=== PATIENT | male | born 1950 | race Two or more races ===

== ENCOUNTER → 2016-10-20 | Outpatient (REF) | payer BC, MEDICARE | LOC: M SFHCCAPE 10:51 | PROVIDERS: ATTEND Physician Assistant | DX: I10 Essential (primary) hypertension (principal); E78.5 Hyperlipidemia, unspecified; Z83.3 Family history of diabetes mellitus; Z12.5 Encounter for screening for malignant neoplasm of prostate ==

== ENCOUNTER → 2016-10-22 | Outpatient (REF) | payer BC, MEDICARE ==
[2016-10-22 11:33] LABS: BASO % 0.8 % (0.0-1.0); EOS # 0.3 K/mm3 (0.0-0.50); LARGE UNSTAINED CELL # 0.1 K/mm3 (0.0-0.4); LARGE UNSTAINED CELL % 1.5 % (0.0-4.0); LYMPH # 1.1 K/mm3 (1.5-4.5); LYMPH % 17.6 % (24.0-44.0); MEAN CORPUSCULAR HEMOGLOBIN 33.2 pg (27.0-33.0); MEAN CORPUSCULAR VOLUME 100.7 fl (80.0-96.0); MONO # 0.6 K/mm3 (0.0-0.8); MONO % 9.1 % (0.0-5.0); NEUTROPHILS % 65.9 % (36.0-66.0); PLATELET COUNT, AUTOMATED 197 k/mm3 (150-450); RED CELL DISTRIBUTION WIDTH 13.2 % (11.5-14.5)
[2016-10-22 11:55] LABS: FOLATE 22.1 NG/ML; VITAMIN B12 LEVEL 632 PG/ML
[2016-10-22 12:13] LABS: ALBUMIN/GLOBULIN RATIO 1.11 (1.00-1.93); ALKALINE PHOSPHATASE 67 U/L (45-117); ALT/SGPT 68 U/L (12-78); ANION GAP 7 MEQ/L (8-16); AST/SGOT 44 U/L (15-37); BILIRUBIN,TOTAL 0.4 MG/DL (0.2-1.0); BLOOD UREA NITROGEN 15 MG/DL (7-18); CARBON DIOXIDE LEVEL 27 MEQ/L (21-32); CHLORIDE LEVEL 110 MEQ/L (98-107); CHOLESTEROL LEVEL 161 MG/DL (<200); CREATININE FOR GFR 1.09 MG/DL (0.70-1.30); FREE T4 0.92 NG/DL (0.76-1.46); GLOMERULAR FILTRATION RATE > 60.0 (>49); GLUCOSE, FASTING 106 MG/DL (80-110); MAGNESIUM LEVEL 2.4 MG/DL (1.8-2.4); POTASSIUM SERUM 4.8 MEQ/L (3.5-5.1); SODIUM LEVEL 144 MEQ/L (136-145); TOTAL PROTEIN 7.6 GM/DL (6.4-8.2); TRIGLYCERIDES LEVEL 110 MG/DL (<150)
== END ==
LOC: M SFHCCAPE 07:30 → M SFHCCLAY 07:45
PROVIDERS: ATTEND Physician Assistant
DX: I10 Essential (primary) hypertension (principal); E78.5 Hyperlipidemia, unspecified; F10.10 Alcohol abuse, uncomplicated; Z12.5 Encounter for screening for malignant neoplasm of prostate; Z83.3 Family history of diabetes mellitus; Z79.82 Long term (current) use of aspirin; Z79.899 Other long term (current) drug therapy
CPT/HCPCS: 80053; 80061; 82607; 82746; 83036; 83735; 84439; 84443; 85025; G0103

== ENCOUNTER → 2016-12-30 | Outpatient (REF) | payer BC, MEDICARE | LOC: M LAB REF 17:28 | PROVIDERS: ATTEND Surgery | DX: D48.5 Neoplasm of uncertain behavior of skin (principal) ==

== ENCOUNTER → 2017-01-15 | Outpatient (REF) | payer BC, MEDICARE | LOC: M LAB REF 13:50 | PROVIDERS: ATTEND Surgery | DX: C44.329 Squamous cell carcinoma of skin of other parts of face (principal) ==

== ENCOUNTER → 2017-04-13 | Outpatient (REF) | payer MEDICARE ==
[2017-04-13 19:12] LABS: ALBUMIN/GLOBULIN RATIO 1.14 (1.00-1.93); ALKALINE PHOSPHATASE 68 U/L (45-117); ALT/SGPT 39 U/L (12-78); ANION GAP 8 MEQ/L (8-16); AST/SGOT 29 U/L (7-37); BILIRUBIN,TOTAL 0.3 MG/DL (0.2-1.0); BLOOD UREA NITROGEN 21 MG/DL (7-18); CARBON DIOXIDE LEVEL 25 MEQ/L (21-32); CHLORIDE LEVEL 109 MEQ/L (98-107); CREATININE FOR GFR 1.22 MG/DL (0.70-1.30); GAMMA GLUTAMYLTRANSPEPTIDASE 69 U/L (15-85); GLOMERULAR FILTRATION RATE > 60.0 (>49); GLUCOSE, FASTING 97 MG/DL (70-100); SODIUM LEVEL 142 MEQ/L (136-145); TOTAL PROTEIN 7.5 GM/DL (6.4-8.2)
== END ==
LOC: M SFHCCAPE 07:10
DX: I10 Essential (primary) hypertension (principal); L98.9 Disorder of the skin and subcutaneous tissue, unspecified; E78.5 Hyperlipidemia, unspecified; F10.10 Alcohol abuse, uncomplicated; E66.09 Other obesity due to excess calories; Z68.30 Body mass index [BMI] 30.0-30.9, adult
CPT/HCPCS: 82977

== ENCOUNTER → 2017-11-19 | Outpatient (REF) | payer MEDICARE ==
[2017-11-19 17:17] LABS: BASO # 0.1 10^3/uL (0.0-0.2); BASO % 0.8 % (0.0-1.0); EOS # 0.3 10^3/uL (0.0-0.50); EOS % 4.2 % (0.0-3.0); HEMATOCRIT 40.2 % (42.0-52.0); HEMOGLOBIN 13.5 g/dl (13.5-17.5); IMMATURE GRANULOCYTE % 0.6 % (0-3.0); LYMPH # 1.2 10^3/uL (1.5-4.5); LYMPH % 16.6 % (24.0-44.0); MEAN CORPUSCULAR HEMOGLOBIN 32.5 pg (27.0-33.0); MEAN CORPUSCULAR HGB CONC 33.6 g/dl (32.0-36.5); MEAN CORPUSCULAR VOLUME 96.9 fl (80.0-96.0); MONO # 0.8 10^3/uL (0.0-0.8); MONO % 10.5 % (0.0-5.0); NEUTROPHILS # 4.9 10^3/uL (1.8-7.7); NEUTROPHILS % 67.3 % (36.0-66.0); PLATELET COUNT, AUTOMATED 260 10^3/uL (150-450); RED BLOOD COUNT 4.15 10^6/uL (4.30-6.10); RED CELL DISTRIBUTION WIDTH 13.5 % (11.5-14.5); WHITE BLOOD COUNT 7.2 10^3/uL (4.0-10.0)
[2017-11-19 17:24] LABS: ALBUMIN 3.9 GM/DL (3.2-5.2); ALBUMIN/GLOBULIN RATIO 1.18 (1.00-1.93); ALKALINE PHOSPHATASE 64 U/L (45-117); ALT/SGPT 52 U/L (12-78); ANION GAP 10 MEQ/L (8-16); AST/SGOT 36 U/L (7-37); BILIRUBIN,TOTAL 0.5 MG/DL (0.2-1.0); BLOOD UREA NITROGEN 14 MG/DL (7-18); CALCIUM LEVEL 9.4 MG/DL (8.8-10.2); CARBON DIOXIDE LEVEL 24 MEQ/L (21-32); CHLORIDE LEVEL 108 MEQ/L (98-107); CHOLESTEROL LEVEL 148 MG/DL (<200); GLOMERULAR FILTRATION RATE > 60.0 (>49); GLUCOSE, FASTING 106 MG/DL (70-100); HDL CHOLESTEROL 55 MG/DL (>40); LDL CHOLESTEROL 72 MG/DL (<100); NON-HDL-C 93 MG/DL; POTASSIUM SERUM 4.1 MEQ/L (3.5-5.1); SODIUM LEVEL 142 MEQ/L (136-145); TOTAL PROTEIN 7.2 GM/DL (6.4-8.2); TRIGLYCERIDES LEVEL 106 MG/DL (<150)
[2017-11-19 17:26] LABS: ESTIMATED AVERAGE GLUCOSE 120 MG/DL (60-110); HEMOGLOBIN A1c 5.8 %
== END ==
LOC: M SFHCCAPE 07:08
DX: E78.5 Hyperlipidemia, unspecified (principal); I10 Essential (primary) hypertension; E66.09 Other obesity due to excess calories; Z79.899 Other long term (current) drug therapy
CPT/HCPCS: 84443

== ENCOUNTER → 2018-02-22 | Outpatient (REF) | payer MEDICARE ==
[2018-02-22 17:24] LABS: ALT/SGPT 33 U/L (12-78); BILIRUBIN,TOTAL 0.5 MG/DL (0.2-1.0); BLOOD UREA NITROGEN 19 MG/DL (7-18); CALCIUM LEVEL 9.3 MG/DL (8.8-10.2); CARBON DIOXIDE LEVEL 23 MEQ/L (21-32); CHLORIDE LEVEL 106 MEQ/L (98-107); CHOLESTEROL LEVEL 156 MG/DL (<200); CHOLESTEROL RISK RATIO 2.476 (<5); CREATININE FOR GFR 1.11 MG/DL (0.70-1.30); GLOMERULAR FILTRATION RATE > 60.0 (>49); GLUCOSE, FASTING 95 MG/DL (70-100); HDL CHOLESTEROL 63 MG/DL (>40); LDL CHOLESTEROL 74 MG/DL (<100); NON-HDL-C 93 MG/DL; POTASSIUM SERUM 4.2 MEQ/L (3.5-5.1); SODIUM LEVEL 140 MEQ/L (136-145); TOTAL PROTEIN 7.5 GM/DL (6.4-8.2); TRIGLYCERIDES LEVEL 95 MG/DL (<150)
[2018-02-22 17:28] LABS: BASO # 0.1 10^3/uL (0.0-0.2); BASO % 0.9 % (0.0-1.0); EOS # 0.4 10^3/uL (0.0-0.50); EOS % 5.6 % (0.0-3.0); HEMATOCRIT 41.7 % (42.0-52.0); LYMPH # 1.2 10^3/uL (1.5-4.5); LYMPH % 17.4 % (24.0-44.0); MEAN CORPUSCULAR HEMOGLOBIN 32.3 pg (27.0-33.0); MEAN CORPUSCULAR HGB CONC 33.6 g/dl (32.0-36.5); MEAN CORPUSCULAR VOLUME 96.1 fl (80.0-96.0); MONO # 0.7 10^3/uL (0.0-0.8); MONO % 10.5 % (0.0-5.0); NEUTROPHILS # 4.4 10^3/uL (1.8-7.7); NEUTROPHILS % 65.2 % (36.0-66.0); PLATELET COUNT, AUTOMATED 230 10^3/uL (150-450); RED BLOOD COUNT 4.34 10^6/uL (4.30-6.10); WHITE BLOOD COUNT 6.7 10^3/uL (4.0-10.0)
[2018-02-22 17:41] LABS: HEMOGLOBIN A1c 5.7 %
== END ==
LOC: M SFHCCAPE 07:23
PROVIDERS: ATTEND Physician Assistant
DX: I10 Essential (primary) hypertension (principal); Z12.5 Encounter for screening for malignant neoplasm of prostate; E03.9 Hypothyroidism, unspecified
CPT/HCPCS: 80053; 80061; 83036; 84443; 85025; G0103

== ENCOUNTER → 2018-05-11 | Outpatient (CLI) | payer MEDICARE ==
--- NOTE | 2018-05-11 09:08 | REP ---
Low-dose lung cancer screening CT study of the chest: Without contrast. History: Nicotine dependence. No comparison chest CT. Comparison chest x-ray January 19, 2013. CT findings: No pulmonary mass lesion is seen. There are multiple noncalcified small subcentimeter pulmonary nodules noted bilaterally. The largest of these is a pleural-based nodule in the right upper lobe posteriorly measuring 6 mm in greatest diameter. There is extensive vascular calcification including coronary artery vascular calcification. No other abnormality. Impression: Lung RADS category three examination. The 6 mm nodule right upper lobe posteriorly. 6-month follow-up CT recommended. There are multiple bilateral smaller pulmonary nodules as well. Electronically Signed by Montez Smith MD 05/11/2018 09:15 A
== END ==
LOC: M RAD 07:38
PROVIDERS: ATTEND Physician Assistant
DX: F17.210 Nicotine dependence, cigarettes, uncomplicated (principal); Z12.2 Encounter for screening for malignant neoplasm of respiratory organs

== ENCOUNTER → 2018-06-10 | Outpatient (CLI) | payer MEDICARE ==
--- NOTE | 2018-06-10 13:41 | REP ---
AORTA ULTRASOUND: HISTORY: Abdominal aortic aneurysm. The proximal aorta at the level of the diaphragm is not seen due to bowel gas. The mid abdominal aorta measures 1.9 cm in AP x 2.4 cm in transverse dimensions. The distal abdominal aorta measures 2.6 cm in AP x 3.3 cm in transverse x 7.9 cm in cephalocaudal dimensions. The right common iliac artery measures 1.1 cm in AP x 1.1 cm in transverse dimension. The left common iliac artery measures 1.2 cm in AP x 1.2 cm in transverse dimensions. IMPRESSION: Abdominal aortic aneurysm as described above. Electronically Signed by Montez Echevarria MD 06/10/2018 01:43 P
== END ==
LOC: M RAD 07:59
PROVIDERS: ATTEND Physician Assistant
DX: I71.4 Abdominal aortic aneurysm, without rupture (principal)

== ENCOUNTER → 2018-09-01 | Outpatient (REF) | payer MEDICARE ==
[2018-09-01 17:25] LABS: BASO % 0.7 % (0.0-1.0); EOS # 0.3 10^3/uL (0.0-0.50); EOS % 4.8 % (0.0-3.0); HEMOGLOBIN 13.9 g/dl (13.5-17.5); LYMPH # 1.2 10^3/uL (1.5-4.5); LYMPH % 19.7 % (24.0-44.0); MEAN CORPUSCULAR HEMOGLOBIN 32.8 pg (27.0-33.0); MEAN CORPUSCULAR HGB CONC 33.1 g/dl (32.0-36.5); MEAN CORPUSCULAR VOLUME 99.1 fl (80.0-96.0); MONO # 0.7 10^3/uL (0.0-0.8); MONO % 11.2 % (0.0-5.0); NEUTROPHILS # 3.8 10^3/uL (1.8-7.7); NEUTROPHILS % 63.3 % (36.0-66.0); PLATELET COUNT, AUTOMATED 207 10^3/uL (150-450); RED BLOOD COUNT 4.24 10^6/uL (4.30-6.10)
[2018-09-01 17:40] LABS: ALBUMIN 3.9 GM/DL (3.2-5.2); ALT/SGPT 38 U/L (12-78); BILIRUBIN,TOTAL 0.4 MG/DL (0.2-1.0); BLOOD UREA NITROGEN 15 MG/DL (7-18); CALCIUM LEVEL 9.1 MG/DL (8.8-10.2); CARBON DIOXIDE LEVEL 25 MEQ/L (21-32); CHLORIDE LEVEL 107 MEQ/L (98-107); CHOLESTEROL LEVEL 148 MG/DL (<200); CHOLESTEROL RISK RATIO 2.242 (<5); FREE T4 0.92 NG/DL (0.76-1.46); GLOMERULAR FILTRATION RATE > 60.0 (>49); GLUCOSE, FASTING 98 MG/DL (70-100); HDL CHOLESTEROL 66 MG/DL (>40); LDL CHOLESTEROL 64 MG/DL (<100); NON-HDL-C 82 MG/DL; POTASSIUM SERUM 4.3 MEQ/L (3.5-5.1); SODIUM LEVEL 140 MEQ/L (136-145); TOTAL PROTEIN 7.6 GM/DL (6.4-8.2); TRIGLYCERIDES LEVEL 92 MG/DL (<150)
[2018-09-01 17:41] LABS: VITAMIN B12 LEVEL 298 PG/ML
[2018-09-01 18:12] LABS: HEMOGLOBIN A1c 5.7 %
== END ==
LOC: M SFHCCAPE 07:04
PROVIDERS: ATTEND Physician Assistant
DX: I10 Essential (primary) hypertension (principal); E03.9 Hypothyroidism, unspecified; R73.09 Other abnormal glucose; E78.5 Hyperlipidemia, unspecified; F10.10 Alcohol abuse, uncomplicated

== ENCOUNTER → 2018-12-29 | Outpatient (CLI) | payer MEDICARE ==
--- NOTE | 2018-12-29 10:36 | REP ---
CT CHEST WITHOUT CONTRAST: HISTORY: Lung nodule followup. Comparison chest CT study May 11, 2018. CT FINDINGS: Prominent vascular calcification is again noted. No adrenal lesion is seen. No pleural or pericardial effusion is observed. No hilar or mediastinal mass or adenopathy is observed. Today's exam is obtained at a rowe level of inspiration. There is a stable 3 mm pulmonary nodule in the left lower lobe on today's study page 79 of 113 series 201. On page 59, there is a stable 5 mm right middle lobe pulmonary nodule. On page 30, there is a stable pleural based nodule in the right upper lobe posteriorly. No new nodule is seen. No other pulmonary nodule is visible. No pulmonary mass or infiltrate is seen. Exam is otherwise unremarkable. IMPRESSION: Three subcentimeter nodular opacities all unchanged from the May 11, 2018 prior study. Repeat study and 6-9 months suggested. Electronically Signed by Montez Smith MD 12/29/2018 03:24 P
== END ==
LOC: M RAD 07:55
PROVIDERS: ATTEND Physician Assistant
DX: R91.8 Other nonspecific abnormal finding of lung field (principal)

== ENCOUNTER → 2019-12-06 | Outpatient (REF) | payer MEDICARE ==
[2019-12-06 12:13] LABS: BASO % 0.6 % (0.0-1.0); EOS # 0.5 10^3/uL (0.0-0.5); EOS % 7.3 % (0.0-3.0); HEMATOCRIT 40.7 % (42.0-52.0); HEMOGLOBIN 13.3 g/dl (13.5-17.5); LYMPH # 1.3 10^3/uL (1.5-5.0); LYMPH % 18.7 % (24.0-44.0); MEAN CORPUSCULAR HEMOGLOBIN 32.6 pg (27.0-33.0); MEAN CORPUSCULAR HGB CONC 32.7 g/dl (32.0-36.5); MEAN CORPUSCULAR VOLUME 99.8 fl (80.0-96.0); MONO # 0.6 10^3/uL (0.0-0.8); MONO % 9.3 % (0.0-5.0); NEUTROPHILS # 4.4 10^3/uL (1.5-8.5); PLATELET COUNT, AUTOMATED 236 10^3/uL (150-450); RED BLOOD COUNT 4.08 10^6/uL (4.30-6.10); WHITE BLOOD COUNT 6.9 10^3/uL (4.0-10.0)
[2019-12-06 12:29] LABS: ALBUMIN 3.8 GM/DL (3.2-5.2); ALT/SGPT 32 U/L (12-78); BILIRUBIN,TOTAL 0.4 MG/DL (0.2-1.0); BLOOD UREA NITROGEN 18 MG/DL (7-18); CALCIUM LEVEL 9.2 MG/DL (8.8-10.2); CARBON DIOXIDE LEVEL 28 MEQ/L (21-32); CHLORIDE LEVEL 106 MEQ/L (98-107); CHOLESTEROL LEVEL 163 MG/DL (<200); CHOLESTEROL RISK RATIO 2.672 (<5); CREATININE FOR GFR 1.24 MG/DL (0.70-1.30); FREE T4 0.83 NG/DL (0.76-1.46); GLOMERULAR FILTRATION RATE > 60.0 (>42); GLUCOSE, FASTING 111 MG/DL (70-100); HDL CHOLESTEROL 61 MG/DL (>40); LDL CHOLESTEROL 84 MG/DL (<100); NON-HDL-C 102 MG/DL; POTASSIUM SERUM 4.7 MEQ/L (3.5-5.1); SODIUM LEVEL 138 MEQ/L (136-145); TOTAL PROTEIN 7.4 GM/DL (6.4-8.2); TRIGLYCERIDES LEVEL 91 MG/DL (<150)
[2019-12-06 12:33] LABS: HEMOGLOBIN A1c 5.3 %
== END ==
LOC: M SFHCCLAY 09:11
PROVIDERS: ATTEND Physician Assistant
DX: I10 Essential (primary) hypertension (principal); E03.9 Hypothyroidism, unspecified; R73.09 Other abnormal glucose; E78.5 Hyperlipidemia, unspecified; I25.10 Atherosclerotic heart disease of native coronary artery without angina pectoris; Z12.5 Encounter for screening for malignant neoplasm of prostate
CPT/HCPCS: 80053; 80061; 83036; 84439; 84443; 85025; G0103

== ENCOUNTER → 2020-03-13 | Outpatient (CLI) | payer MEDICARE ==
--- NOTE | 2020-03-13 11:54 | REP ---
INDICATION: LUNG NODULE. COMPARISON: Comparison chest CT studies are from 29 December 2018 and 11 May 2018.. TECHNIQUE: Helical scanning is acquired. 3 mm axial images are generated. Coronal and sagittal MPR and coronal MIP images are generated. FINDINGS: Preliminary digital varnish blender radiographs are unremarkable. There is no evidence of pleural or pericardial effusion. Normal adrenals are seen. No abnormality is noted in the abdomen. Vascular calcification is observed. No hilar or mediastinal mass or adenopathy is seen. The previously noted subcentimeter nodules in the left lower lobe,2 right middle lobe, and right upper lobe posteriorly, are again seen and are all unchanged from the May 11, 2018 prior study. There is a new patchy infiltrate pattern in the right upper lobe with ground-glass opacities in a peribronchovascular distribution which suggests inflammatory disease/pneumonia. Possibly viral pneumonia. In addition, there is a new pulmonary nodule in the right lower lobe projecting on page 56 of 118 in series 201 of today's study. This measures 6 mm in diameter. No other new nodule is seen. Scan is otherwise unremarkable. IMPRESSION: 1. There is a new infiltrate in the right upper lobe with ground-glass opacity in a peribronchovascular distribution. Question pneumonia possibly viral pneumonia. 2. There is a new 6 mm nodule in the right lower lobe without calcification. Other previously observed nodules are stable. 3. Recommendation: 6 month follow-up chest CT study. <Electronically signed by Gonzalo Smith > 03/13/20 [id number]
== END ==
LOC: M RAD 07:51
PROVIDERS: ATTEND Physician Assistant
DX: R91.1 Solitary pulmonary nodule (principal)

== ENCOUNTER → 2020-06-12 | Outpatient (REF) | payer MEDICARE ==
[2020-06-12 13:45] LABS: BASO % 0.6 % (0.0-1.0); EOS # 0.4 10^3/uL (0.0-0.5); EOS % 6.1 % (0.0-3.0); HEMATOCRIT 40.7 % (42.0-52.0); HEMOGLOBIN 13.2 g/dl (13.5-17.5); LYMPH # 1.2 10^3/uL (1.5-5.0); LYMPH % 17.9 % (24.0-44.0); MEAN CORPUSCULAR HGB CONC 32.4 g/dl (32.0-36.5); MEAN CORPUSCULAR VOLUME 98.8 fl (80.0-96.0); MONO # 0.8 10^3/uL (0.0-0.8); MONO % 11.9 % (2.0-8.0); NEUTROPHILS # 4.3 10^3/uL (1.5-8.5); NEUTROPHILS % 63.1 % (36.0-66.0); PLATELET COUNT, AUTOMATED 221 10^3/uL (150-450); RED BLOOD COUNT 4.12 10^6/uL (4.30-6.10); WHITE BLOOD COUNT 6.8 10^3/uL (4.0-10.0)
[2020-06-12 14:24] LABS: ALBUMIN 3.8 GM/DL (3.2-5.2); ALT/SGPT 33 U/L (12-78); BILIRUBIN,TOTAL 0.4 MG/DL (0.2-1.0); BLOOD UREA NITROGEN 14 MG/DL (7-18); CALCIUM LEVEL 9.2 MG/DL (8.8-10.2); CARBON DIOXIDE LEVEL 29 MEQ/L (21-32); CHLORIDE LEVEL 106 MEQ/L (98-107); CREATININE FOR GFR 0.95 MG/DL (0.70-1.30); FERRITIN 210 NG/ML (26-388); FREE T4 0.96 NG/DL (0.76-1.46); GLOMERULAR FILTRATION RATE > 60.0 (>42); GLUCOSE, FASTING 109 MG/DL (70-100); HEMOGLOBIN A1c 5.3 %; IRON (FE) 84 UG/DL (65-175); POTASSIUM SERUM 4.6 MEQ/L (3.5-5.1); SODIUM LEVEL 139 MEQ/L (136-145); TOTAL PROTEIN 7.1 GM/DL (6.4-8.2)
[2020-06-12 14:25] LABS: FOLATE 13.8 NG/ML; VITAMIN B12 LEVEL 256 PG/ML
== END ==
LOC: M SFHCCLAY 08:17
PROVIDERS: ATTEND Physician Assistant
DX: D64.9 Anemia, unspecified (principal); E03.9 Hypothyroidism, unspecified; R73.09 Other abnormal glucose

== ENCOUNTER → 2020-09-20 | Outpatient (CLI) | payer MEDICARE ==
--- NOTE | 2020-09-20 14:48 | REP ---
INDICATION: ABN FINDING OF LUNG FIELD. COMPARISON: 03/13/2020. TECHNIQUE: Chest CT without IV contrast. FINDINGS: The right upper lobe ground-glass densities identified as new findings on the comparison study have resolved, likely transient atelectasis or transient infiltrates. The 6 mm right lower lobe lung nodule identified as a new finding on 03/13/2020 is no longer present, likely transient atelectasis. There are stable lung nodules on: Page 32 posteriorly right upper lobe, Page 63 right middle lobe, And page 75 left lower lobe, unchanged from the prior study and also unchanged from May 11 2018. No new lung nodules are identified today. There are no infiltrates or pleural effusions. There is no mediastinal or axillary lymph node enlargement. The study is insensitive for hilar lymph node enlargement in the absence of IV contrast. The unenhanced thoracic aorta is unremarkable except for occasional calcified atheroma. Cardiac size is normal. There is calcified atheroma in the coronary arteries, particularly left anterior descending. There is no pericardial effusion. The visualized upper abdominal contents 10 demonstrate no adrenal mass. There is heavily calcified atheromatous plaquing at the origin of the superior mesenteric artery. There is calcified atheroma at the origins of the renal arteries. Question whether there is a endovascular stent at the origin of the right renal artery IMPRESSION: Lung nodules as described. Some of the nodules on the comparison study have resolved. There are no new nodules. There is some chronic stable nodules as described. There are no infiltrates or pleural effusions. There is no adenopathy. Calcified atheroma in the left anterior descending coronary artery. Calcified atheroma at the origin of the superior mesenteric artery. Calcified atheroma at the origins of the renal arteries. Question endovascular stent at the origin of the right renal artery. This should be correlated with the patient's clinical history. <Electronically signed by Marcus Álvarez > 09/20/20 [id number]
== END ==
LOC: M PLAIMG 12:41
PROVIDERS: ATTEND Physician Assistant
DX: R91.8 Other nonspecific abnormal finding of lung field (principal); I25.10 Atherosclerotic heart disease of native coronary artery without angina pectoris

== ENCOUNTER → 2020-10-08 | Outpatient (REF) | payer MEDICARE ==
[2020-10-08 18:15] LABS: FREE T4 0.83 NG/DL (0.76-1.46); THYROID STIMULATING HORMONE 3.33 uIU/ML (0.358-3.740)
== END ==
LOC: M SFHCCAPE 07:49
PROVIDERS: ATTEND Physician Assistant
DX: E03.9 Hypothyroidism, unspecified (principal)

== ENCOUNTER → 2020-10-11 | Outpatient (REF) | payer MEDICARE ==
[2020-10-11 16:35] LABS: BASO # 0.1 10^3/uL (0.0-0.2); EOS # 0.4 10^3/uL (0.0-0.5); EOS % 5.5 % (0.0-3.0); HEMATOCRIT 44.6 % (42.0-52.0); HEMOGLOBIN 14.9 g/dl (13.5-17.5); LYMPH # 1.1 10^3/uL (1.5-5.0); LYMPH % 15.7 % (24.0-44.0); MEAN CORPUSCULAR HEMOGLOBIN 32.3 pg (27.0-33.0); MEAN CORPUSCULAR HGB CONC 33.4 g/dl (32.0-36.5); MEAN CORPUSCULAR VOLUME 96.7 fl (80.0-96.0); MONO # 0.8 10^3/uL (0.0-0.8); MONO % 11.4 % (2.0-8.0); NEUTROPHILS # 4.8 10^3/uL (1.5-8.5); PLATELET COUNT, AUTOMATED 255 10^3/uL (150-450); RED BLOOD COUNT 4.61 10^6/uL (4.30-6.10); WHITE BLOOD COUNT 7.3 10^3/uL (4.0-10.0)
[2020-10-11 17:00] LABS: ALBUMIN 4.1 GM/DL (3.2-5.2); ALT/SGPT 40 U/L (12-78); BILIRUBIN,TOTAL 0.6 MG/DL (0.2-1.0); BLOOD UREA NITROGEN 11 MG/DL (7-18); CALCIUM LEVEL 9.6 MG/DL (8.8-10.2); CARBON DIOXIDE LEVEL 22 MEQ/L (21-32); CHLORIDE LEVEL 105 MEQ/L (98-107); CREATININE FOR GFR 1.03 MG/DL (0.70-1.30); GLOMERULAR FILTRATION RATE > 60.0 (>42); GLUCOSE, FASTING 101 MG/DL (70-100); MAGNESIUM LEVEL 2.5 MG/DL (1.8-2.4); NT-PRO BNP 342 PG/ML (<125); POTASSIUM SERUM 4.8 MEQ/L (3.5-5.1); SODIUM LEVEL 136 MEQ/L (136-145); TOTAL PROTEIN 8.2 GM/DL (6.4-8.2)
[2020-10-11 17:04] LABS: APPEARANCE, URINE CLEAR (CLEAR); BACTERIA, URINE AUTO NEGATIVE (NEGATIVE); BILIRUBIN, URINE AUTO NEGATIVE (NEGATIVE); BLOOD, URINE BLOOD NEGATIVE (NEGATIVE); COLOR, URINE YELLOW (YELLOW); GLUCOSE, URINE (UA) AUTO NEGATIVE (NEGATIVE); KETONE, URINE AUTO NEGATIVE (NEGATIVE); LEUKOCYTE ESTERASE, URINE AUTO NEGATIVE (NEGATIVE); MUCUS, URINE SMALL (NEGATIVE); NITRITE, URINE AUTO NEGATIVE (NEGATIVE); PROTEIN, URINE AUTO NEGATIVE (NEGATIVE); RBC, URINE AUTO 1 /HPF (0-3); SPECIFIC GRAVITY URINE AUTO 1.005 (1.002-1.035); SQUAMOUS EPITHELIAL CELL UR AU 0 /HPF (0-6); UROBILINOGEN, URINE AUTO 0.2 mg/dL (0.0-2.0); WBC, URINE AUTO 0 /HPF (0-3)
== END ==
LOC: M SFHCCAPE 08:45
PROVIDERS: ATTEND Physician Assistant
DX: R60.0 Localized edema (principal)

== ENCOUNTER → 2021-01-14 | Outpatient (REF) | payer MEDICARE ==
[2021-01-14 16:41] LABS: BASO # 0.1 10^3/uL (0.0-0.2); EOS # 0.4 10^3/uL (0.0-0.5); EOS % 6.6 % (0.0-3.0); HEMATOCRIT 42.2 % (42.0-52.0); LYMPH # 1.2 10^3/uL (1.5-5.0); LYMPH % 19.4 % (24.0-44.0); MEAN CORPUSCULAR HEMOGLOBIN 32.9 pg (27.0-33.0); MEAN CORPUSCULAR HGB CONC 33.2 g/dl (32.0-36.5); MEAN CORPUSCULAR VOLUME 99.1 fl (80.0-96.0); MONO # 0.8 10^3/uL (0.0-0.8); NEUTROPHILS # 3.8 10^3/uL (1.5-8.5); NEUTROPHILS % 60.8 % (36.0-66.0); PLATELET COUNT, AUTOMATED 213 10^3/uL (150-450); RED BLOOD COUNT 4.26 10^6/uL (4.30-6.10); WHITE BLOOD COUNT 6.2 10^3/uL (4.0-10.0)
[2021-01-14 17:39] LABS: ALT/SGPT 35 U/L (12-78); BILIRUBIN,TOTAL 0.4 MG/DL (0.2-1.0); BLOOD UREA NITROGEN 19 MG/DL (7-18); CALCIUM LEVEL 9.4 MG/DL (8.8-10.2); CARBON DIOXIDE LEVEL 25 MEQ/L (21-32); CHLORIDE LEVEL 105 MEQ/L (98-107); CHOLESTEROL LEVEL 158 MG/DL (<200); CHOLESTEROL RISK RATIO 2.323 (<5); CREATININE FOR GFR 1.11 MG/DL (0.70-1.30); GLOMERULAR FILTRATION RATE > 60.0 (>42); GLUCOSE, FASTING 101 MG/DL (70-100); HDL CHOLESTEROL 68 MG/DL (>40); LDL CHOLESTEROL 70 MG/DL (<100); NON-HDL-C 90 MG/DL; POTASSIUM SERUM 4.4 MEQ/L (3.5-5.1); SODIUM LEVEL 137 MEQ/L (136-145); TOTAL PROTEIN 7.9 GM/DL (6.4-8.2); TRIGLYCERIDES LEVEL 99 MG/DL (<150)
== END ==
LOC: M SFHCCAPE 07:44
PROVIDERS: ATTEND Physician Assistant
DX: E03.9 Hypothyroidism, unspecified (principal); Z12.5 Encounter for screening for malignant neoplasm of prostate
CPT/HCPCS: 80053; 80061; 84443; 85025; G0103

== ENCOUNTER → 2021-02-25 | Outpatient (REF) | payer MEDICARE ==
[2021-02-25 16:05] LABS: BLOOD UREA NITROGEN 21 MG/DL (7-18); CALCIUM LEVEL 9.1 MG/DL (8.8-10.2); CARBON DIOXIDE LEVEL 28 MEQ/L (21-32); CHLORIDE LEVEL 105 MEQ/L (98-107); CREATININE FOR GFR 1.25 MG/DL (0.70-1.30); FREE T4 1.17 NG/DL (0.76-1.46); GLOMERULAR FILTRATION RATE > 60.0 (>42); GLUCOSE, FASTING 95 MG/DL (70-100); POTASSIUM SERUM 3.9 MEQ/L (3.5-5.1); SODIUM LEVEL 139 MEQ/L (136-145)
== END ==
LOC: M SFHCCAPE 08:12
PROVIDERS: ATTEND Physician Assistant
DX: E03.9 Hypothyroidism, unspecified (principal); I10 Essential (primary) hypertension

== ENCOUNTER → 2021-10-21 | Outpatient (CLI) | payer MEDICARE | LOC: M RAD 09:02 | PROVIDERS: ATTEND Physician Assistant | DX: Z12.2 Encounter for screening for malignant neoplasm of respiratory organs (principal); Z87.891 Personal history of nicotine dependence ==

== ENCOUNTER → 2022-03-26 | Outpatient (CLI) | payer MEDICARE | LOC: M RAD 07:57 | PROVIDERS: ATTEND Physician Assistant | DX: I71.43 Infrarenal abdominal aortic aneurysm, without rupture (principal); I72.3 Aneurysm of iliac artery ==

== ENCOUNTER → 2022-05-23 | Outpatient (CLI) | payer MEDICARE | LOC: M CLY 08:53 | PROVIDERS: ATTEND Physician Assistant | DX: M51.37 Other intervertebral disc degeneration, lumbosacral region (principal) ==

== ENCOUNTER → 2022-06-12 | Outpatient (REF) | payer MEDICARE ==
[2022-06-12 17:49] LABS: ALBUMIN 4.2 G/DL (3.2-5.2); BILIRUBIN,TOTAL 0.4 MG/DL (0.3-1.2); CALCIUM LEVEL 9.3 MG/DL (8.3-10.6); CHOLESTEROL RISK RATIO 3.41 (<5); CREATININE FOR GFR 1.26 MG/DL (0.70-1.30); GLOMERULAR FILTRATION RATE 59.7 (>42); HDL CHOLESTEROL 42.2 MG/DL (>40); LDL CHOLESTEROL 79.8 MG/DL (<100); MAGNESIUM LEVEL 1.8 MG/DL (1.8-2.4); NON-HDL-C 101.8 MG/DL; POTASSIUM SERUM 4.3 MMOL/L (3.5-5.1); TOTAL PROTEIN 7.4 G/DL (5.7-8.2)
[2022-06-12 17:51] LABS: FREE T4 1.16 NG/DL (0.89-1.76)
[2022-06-12 17:52] LABS: THYROID STIMULATING HORMONE 3.123 uIU/ML (0.55-4.78); TOTAL 25(OH) VITAMIN D 33.1 NG/ML (20.0-100.0)
[2022-06-12 18:01] LABS: APPEARANCE, URINE CLEAR (CLEAR); BACTERIA, URINE AUTO NEGATIVE (NEGATIVE); BILIRUBIN, URINE AUTO NEGATIVE (NEGATIVE); BLOOD, URINE BLOOD 1+ (NEGATIVE); COLOR, URINE YELLOW (YELLOW); GLUCOSE, URINE (UA) AUTO NEGATIVE (NEGATIVE); KETONE, URINE AUTO NEGATIVE (NEGATIVE); LEUKOCYTE ESTERASE, URINE AUTO NEGATIVE (NEGATIVE); MUCUS, URINE SMALL (NEGATIVE); NITRITE, URINE AUTO NEGATIVE (NEGATIVE); PROTEIN, URINE AUTO NEGATIVE (NEGATIVE); RBC, URINE AUTO 1 /HPF (0-3); SPECIFIC GRAVITY URINE AUTO 1.014 (1.002-1.035); SQUAMOUS EPITHELIAL CELL UR AU 0 /HPF (0-6); UROBILINOGEN, URINE AUTO 0.2 mg/dL (0.0-2.0); WBC, URINE AUTO 0 /HPF (0-3)
[2022-06-12 18:04] LABS: BASO # 0.1 10^3/uL (0.0-0.2); BASO % 0.9 % (0.0-1.0); EOS # 0.6 10^3/uL (0.0-0.5); EOS % 8.3 % (0.0-3.0); HEMATOCRIT 38.7 % (42.0-52.0); HEMOGLOBIN 13.1 g/dl (13.5-17.5); LYMPH # 1.4 10^3/uL (1.5-5.0); LYMPH % 21.1 % (24.0-44.0); MEAN CORPUSCULAR HEMOGLOBIN 32.7 pg (27.0-33.0); MEAN CORPUSCULAR HGB CONC 33.9 g/dl (32.0-36.5); MEAN CORPUSCULAR VOLUME 96.5 fl (80.0-96.0); MONO # 0.8 10^3/uL (0.0-0.8); MONO % 11.6 % (2.0-8.0); NEUTROPHILS # 3.8 10^3/uL (1.5-8.5); NEUTROPHILS % 57.8 % (36.0-66.0); PLATELET COUNT, AUTOMATED 219 10^3/uL (150-450); RED BLOOD COUNT 4.01 10^6/uL (4.30-6.10); WHITE BLOOD COUNT 6.6 10^3/uL (4.0-10.0)
[2022-06-12 19:41] LABS: HEMOGLOBIN A1c 5.5 % (4.0-6.0)
== END ==
LOC: M SFHCCAPE 08:12
PROVIDERS: ATTEND Physician Assistant
DX: Z00.00 Encounter for general adult medical examination without abnormal findings (principal); Z79.899 Other long term (current) drug therapy

== ENCOUNTER → 2022-10-15 | Outpatient (REF) | payer MEDICARE ==
[2022-10-15 18:12] LABS: BASO # 0.1 10^3/uL (0.0-0.2); BASO % 0.9 % (0.0-1.0); EOS # 0.4 10^3/uL (0.0-0.5); EOS % 5.5 % (0.0-3.0); HEMATOCRIT 39.2 % (42.0-52.0); HEMOGLOBIN 13.6 g/dl (13.5-17.5); LYMPH # 1.3 10^3/uL (1.5-5.0); MEAN CORPUSCULAR HEMOGLOBIN 32.9 pg (27.0-33.0); MEAN CORPUSCULAR HGB CONC 34.7 g/dl (32.0-36.5); MEAN CORPUSCULAR VOLUME 94.9 fl (80.0-96.0); MONO % 14.1 % (2.0-8.0); NEUTROPHILS # 4.5 10^3/uL (1.5-8.5); NEUTROPHILS % 61.2 % (36.0-66.0); PLATELET COUNT, AUTOMATED 233 10^3/uL (150-450); RED BLOOD COUNT 4.13 10^6/uL (4.30-6.10); WHITE BLOOD COUNT 7.4 10^3/uL (4.0-10.0)
[2022-10-15 18:13] LABS: APPEARANCE, URINE CLEAR (CLEAR); BACTERIA, URINE AUTO NEGATIVE (NEGATIVE); BILIRUBIN, URINE AUTO NEGATIVE (NEGATIVE); BLOOD, URINE BLOOD 1+ (NEGATIVE); COLOR, URINE STRAW (YELLOW); GLUCOSE, URINE (UA) AUTO NEGATIVE (NEGATIVE); KETONE, URINE AUTO NEGATIVE (NEGATIVE); LEUKOCYTE ESTERASE, URINE AUTO NEGATIVE (NEGATIVE); NITRITE, URINE AUTO NEGATIVE (NEGATIVE); PROTEIN, URINE AUTO NEGATIVE (NEGATIVE); RBC, URINE AUTO 1 /HPF (0-3); SPECIFIC GRAVITY URINE AUTO 1.008 (1.002-1.035); SQUAMOUS EPITHELIAL CELL UR AU 0 /HPF (0-6); UROBILINOGEN, URINE AUTO 0.2 mg/dL (0.0-2.0); WBC, URINE AUTO 0 /HPF (0-3)
[2022-10-15 18:43] LABS: IRON (FE) 66 UG/DL (65-175); PERCENT SATURATION 20.6 % (19.7-50.0); TOTAL IRON BINDING CAPACITY 320 UG/DL (250-425)
[2022-10-15 18:44] LABS: ALKALINE PHOSPHATASE 62 U/L (46-116); ALT/SGPT 33 U/L (7.0-40); AST/SGOT 33 U/L (<34); BILIRUBIN,TOTAL 0.5 MG/DL (0.3-1.2); BLOOD UREA NITROGEN 13 MG/DL (9-23); CALCIUM LEVEL 9.3 MG/DL (8.3-10.6); CARBON DIOXIDE LEVEL 25 MMOL/L (20-31); CHLORIDE LEVEL 99 MMOL/L (98-107); CREATININE FOR GFR 0.94 MG/DL (0.70-1.30); FERRITIN 200.6 NG/ML (10.5-307.3); GLOMERULAR FILTRATION RATE > 60.0 (>42); GLUCOSE, FASTING 104 MG/DL (74-106); POTASSIUM SERUM 4.2 MMOL/L (3.5-5.1); SODIUM LEVEL 132 MMOL/L (136-145); TOTAL PROTEIN 7.2 G/DL (5.7-8.2)
== END ==
LOC: M SFHCCAPE 08:19
PROVIDERS: ATTEND Physician Assistant Medical
DX: D64.9 Anemia, unspecified (principal); Z79.899 Other long term (current) drug therapy

== ENCOUNTER → 2022-12-31 | Outpatient (CLI) | payer MEDICARE | LOC: M RAD 08:44 | PROVIDERS: ATTEND Physician Assistant | DX: Z12.2 Encounter for screening for malignant neoplasm of respiratory organs (principal); Z87.891 Personal history of nicotine dependence ==

== ENCOUNTER → 2023-03-05 | Outpatient (REF) | payer MEDICARE ==
[2023-03-05 18:14] LABS: BLOOD UREA NITROGEN 21 MG/DL (9-23); CALCIUM LEVEL 9.6 MG/DL (8.3-10.6); CARBON DIOXIDE LEVEL 27 MMOL/L (20-31); CHLORIDE LEVEL 103 MMOL/L (98-107); GLOMERULAR FILTRATION RATE > 60.0 (>42); GLUCOSE, FASTING 87 MG/DL (74-106); POTASSIUM SERUM 4.6 MMOL/L (3.5-5.1); SODIUM LEVEL 136 MMOL/L (136-145)
== END ==
LOC: M SFHCCAPE 11:25
PROVIDERS: ATTEND Physician Assistant Medical
DX: E87.1 Hypo-osmolality and hyponatremia (principal)

== ENCOUNTER → 2023-03-13 | Outpatient (CLI) | payer MEDICARE | LOC: M WHC 12:59 | PROVIDERS: ATTEND Physician Assistant Medical | DX: M43.9 Deforming dorsopathy, unspecified (principal) ==

== ENCOUNTER → 2023-03-18 | Outpatient (CLI) | payer MEDICARE | LOC: M RAD 09:28 | PROVIDERS: ATTEND Physician Assistant | DX: I71.40 Abdominal aortic aneurysm, without rupture, unspecified (principal) ==

== ENCOUNTER → 2023-06-29 | Outpatient (REF) | payer MEDICARE ==
[2023-06-29 17:53] LABS: PSA SCREENING 0.62 NG/ML (< 4.00)
[2023-06-29 17:54] LABS: ALBUMIN 3.8 G/DL (3.2-5.2); ALKALINE PHOSPHATASE 62 U/L (46-116); ALT/SGPT 26 U/L (7.0-40); AST/SGOT 25 U/L (<34); BASO # 0.1 10^3/uL (0.0-0.2); BILIRUBIN,TOTAL 0.6 MG/DL (0.3-1.2); BLOOD UREA NITROGEN 22 MG/DL (9-23); CARBON DIOXIDE LEVEL 23 MMOL/L (20-31); CHLORIDE LEVEL 104 MMOL/L (98-107); CHOLESTEROL LEVEL 146 MG/DL (<200); CHOLESTEROL RISK RATIO 2.53 (<5); CREATININE FOR GFR 0.98 MG/DL (0.70-1.30); EOS # 0.4 10^3/uL (0.0-0.5); EOS % 6.3 % (0.0-3.0); GLOMERULAR FILTRATION RATE > 60.0 (>42); GLUCOSE, FASTING 107 MG/DL (74-106); HDL CHOLESTEROL 57.7 MG/DL (>40); HEMATOCRIT 36.9 % (42.0-52.0); HEMOGLOBIN 12.7 g/dl (13.5-17.5); LDL CHOLESTEROL 72.5 MG/DL (<100); LYMPH # 1.1 10^3/uL (1.5-5.0); LYMPH % 18.6 % (24.0-44.0); MEAN CORPUSCULAR HEMOGLOBIN 33.2 pg (27.0-33.0); MEAN CORPUSCULAR HGB CONC 34.4 g/dl (32.0-36.5); MEAN CORPUSCULAR VOLUME 96.3 fl (80.0-96.0); MONO # 0.9 10^3/uL (0.0-0.8); NEUTROPHILS # 3.6 10^3/uL (1.5-8.5); NEUTROPHILS % 59.8 % (36.0-66.0); NON-HDL-C 88.3 MG/DL; PLATELET COUNT, AUTOMATED 229 10^3/uL (150-450); POTASSIUM SERUM 4.2 MMOL/L (3.5-5.1); RED BLOOD COUNT 3.83 10^6/uL (4.30-6.10); SODIUM LEVEL 135 MMOL/L (136-145); TRIGLYCERIDES LEVEL 79 MG/DL (<150); WHITE BLOOD COUNT 6.1 10^3/uL (4.0-10.0)
[2023-06-29 17:57] LABS: THYROID STIMULATING HORMONE 2.777 uIU/ML (0.55-4.78)
[2023-06-29 17:58] LABS: FREE T4 1.16 NG/DL (0.89-1.76)
== END ==
LOC: M SFHCCAPE 08:47
PROVIDERS: ATTEND Physician Assistant Medical
DX: I25.10 Atherosclerotic heart disease of native coronary artery without angina pectoris (principal); I10 Essential (primary) hypertension; E78.5 Hyperlipidemia, unspecified; E03.9 Hypothyroidism, unspecified; Z12.5 Encounter for screening for malignant neoplasm of prostate
CPT/HCPCS: 80053; 80061; 84439; 84443; 85025; G0103

== ENCOUNTER → 2023-07-09 | Outpatient (CLI) | payer MEDICARE | LOC: M CLY 09:16 | PROVIDERS: ATTEND Physician Assistant Medical | DX: M25.561 Pain in right knee (principal) ==

== ENCOUNTER → 2023-11-13 | Outpatient (CLI) | payer MEDICARE | LOC: M PLAIMG 13:14 | PROVIDERS: ATTEND Physician Assistant | DX: M23.321 Other meniscus derangements, posterior horn of medial meniscus, right knee (principal); M94.261 Chondromalacia, right knee; M17.11 Unilateral primary osteoarthritis, right knee; M25.461 Effusion, right knee ==

== ENCOUNTER → 2023-12-29 | Outpatient (REF) | payer MEDICARE ==
[2023-12-29 18:12] LABS: BASO # 0.1 10^3/uL (0.0-0.2); EOS # 0.5 10^3/uL (0.0-0.5); EOS % 7.8 % (0.0-3.0); HEMATOCRIT 39.9 % (42.0-52.0); HEMOGLOBIN 13.8 g/dl (13.5-17.5); LYMPH # 1.2 10^3/uL (1.5-5.0); MEAN CORPUSCULAR HEMOGLOBIN 33.8 pg (27.0-33.0); MEAN CORPUSCULAR HGB CONC 34.6 g/dl (32.0-36.5); MEAN CORPUSCULAR VOLUME 97.8 fl (80.0-96.0); MONO # 0.7 10^3/uL (0.0-0.8); MONO % 11.4 % (2.0-8.0); NEUTROPHILS # 3.8 10^3/uL (1.5-8.5); NEUTROPHILS % 60.3 % (36.0-66.0); PLATELET COUNT, AUTOMATED 237 10^3/uL (150-450); RED BLOOD COUNT 4.08 10^6/uL (4.30-6.10); WHITE BLOOD COUNT 6.3 10^3/uL (4.0-10.0)
[2023-12-29 18:42] LABS: ALKALINE PHOSPHATASE 61 U/L (40-129); ALT/SGPT 31 U/L (7.0-40); AST/SGOT 32 U/L (<34); BILIRUBIN,TOTAL 0.5 MG/DL (0.3-1.2); BLOOD UREA NITROGEN 19 MG/DL (9-23); CALCIUM LEVEL 9.9 MG/DL (8.3-10.6); CARBON DIOXIDE LEVEL 26 MMOL/L (20-31); CHLORIDE LEVEL 100 MMOL/L (98-107); CREATININE FOR GFR 0.95 MG/DL (0.70-1.30); GLOMERULAR FILTRATION RATE > 60.0 (>42); GLUCOSE, FASTING 96 MG/DL (74-106); MAGNESIUM LEVEL 1.8 MG/DL (1.8-2.4); POTASSIUM SERUM 4.4 MMOL/L (3.5-5.1); SODIUM LEVEL 134 MMOL/L (136-145); TOTAL PROTEIN 7.5 G/DL (5.7-8.2); VITAMIN B12 LEVEL 517 PG/ML (211-911)
[2023-12-29 18:43] LABS: THYROID STIMULATING HORMONE 3.309 uIU/ML (0.55-4.78)
[2023-12-29 18:44] LABS: FOLATE 19.3 NG/ML (>5.4)
== END ==
LOC: M SFHCCAPE 07:34
PROVIDERS: ATTEND Physician Assistant Medical
DX: M25.561 Pain in right knee (principal); R25.2 Cramp and spasm; E03.9 Hypothyroidism, unspecified; I10 Essential (primary) hypertension; E87.1 Hypo-osmolality and hyponatremia; D64.9 Anemia, unspecified

== ENCOUNTER → 2024-03-22 | Outpatient (CLI) | payer MEDICARE | LOC: M RAD 08:08 | PROVIDERS: ATTEND Physician Assistant | DX: I71.40 Abdominal aortic aneurysm, without rupture, unspecified (principal) ==

== ENCOUNTER → 2024-06-23 | Outpatient (REF) | payer MEDICARE ==
[2024-06-23 19:01] LABS: PSA SCREENING 0.62 NG/ML (< 4.00)
[2024-06-23 19:02] LABS: BASO # 0.1 10^3/uL (0.0-0.2); BASO % 0.9 % (0.0-1.0); EOS # 0.4 10^3/uL (0.0-0.5); EOS % 6.5 % (0.0-3.0); HEMATOCRIT 35.5 % (42.0-52.0); HEMOGLOBIN 11.8 g/dl (13.5-17.5); LYMPH # 1.2 10^3/uL (1.5-5.0); MEAN CORPUSCULAR HEMOGLOBIN 33.1 pg (27.0-33.0); MEAN CORPUSCULAR HGB CONC 33.2 g/dl (32.0-36.5); MEAN CORPUSCULAR VOLUME 99.4 fl (80.0-96.0); MONO # 0.7 10^3/uL (0.0-0.8); MONO % 12.2 % (2.0-8.0); NEUTROPHILS # 3.4 10^3/uL (1.5-8.5); NEUTROPHILS % 59.1 % (36.0-66.0); PLATELET COUNT, AUTOMATED 199 10^3/uL (150-450); RED BLOOD COUNT 3.57 10^6/uL (4.30-6.10); WHITE BLOOD COUNT 5.8 10^3/uL (4.0-10.0)
[2024-06-23 19:05] LABS: THYROID STIMULATING HORMONE 2.973 uIU/ML (0.55-4.78)
[2024-06-23 19:06] LABS: ALBUMIN 3.6 G/DL (3.2-5.2); BILIRUBIN,TOTAL 0.3 MG/DL (0.3-1.2); CHOLESTEROL RISK RATIO 2.9 (<5); CREATININE FOR GFR 0.99 MG/DL (0.70-1.30); GLOMERULAR FILTRATION RATE 79.4 (>42); HDL CHOLESTEROL 48.9 MG/DL (>40); LDL CHOLESTEROL 75.3 MG/DL (<100); NON-HDL-C 93.1 MG/DL; POTASSIUM SERUM 4.2 MMOL/L (3.5-5.1); TOTAL PROTEIN 6.5 G/DL (5.7-8.2)
[2024-06-23 19:08] LABS: FREE T4 1.12 NG/DL (0.89-1.76)
== END ==
LOC: M SFHCCAPE 07:16
PROVIDERS: ATTEND Physician Assistant Medical
DX: D64.9 Anemia, unspecified (principal); I10 Essential (primary) hypertension; E03.9 Hypothyroidism, unspecified; I25.10 Atherosclerotic heart disease of native coronary artery without angina pectoris; Z12.5 Encounter for screening for malignant neoplasm of prostate

== ENCOUNTER → 2024-09-26 | Outpatient (REF) | payer MEDICARE ==
[2024-09-26 18:54] LABS: BASO # 0.1 10^3/uL (0.0-0.2); BASO % 0.8 % (0.0-1.0); EOS # 0.5 10^3/uL (0.0-0.5); EOS % 7.6 % (0.0-3.0); IRON (FE) 104.0 UG/DL (65-175); LYMPH # 1.0 10^3/uL (1.5-5.0); LYMPH % 17.5 % (24.0-44.0); MONO # 0.6 10^3/uL (0.0-0.8); MONO % 10.9 % (2.0-8.0); NEUTROPHILS # 3.7 10^3/uL (1.5-8.5); NEUTROPHILS % 62.9 % (36.0-66.0); PERCENT SATURATION 36.1 % (19.7-50.0); PLATELET COUNT, AUTOMATED 223 10^3/uL (150-450)
[2024-09-26 18:56] LABS: VITAMIN B12 LEVEL 585.0 PG/ML (211-911)
== END ==
LOC: M SFHCCAPE 07:45
PROVIDERS: ATTEND Physician Assistant Medical
DX: D64.9 Anemia, unspecified (principal)

== ENCOUNTER 2024-10-26 08:15 | Day surgery (SDC) | payer MEDICARE ==
[~2024-10-26] VITALS: Ht 185.4 cm; Wt 84.2 kg
[~2024-10-26 08:15] MED LIST: CARV25TA PO; CHLO125TA PO; ECOT81TA5 PO; LEVO50TA5 PO; LIDOCAINE 2% 100 MG/5 ML SDV (FOR ANES.) As Ordered ONE; NITR0.4S14 PO; ROSU20TA86 PO; TELM1TAB31 PO
[2024-10-26 09:42] VITALS: TEMP 97.6
[2024-10-26 09:58] VITALS: BP 135/60; O2SAT 99
== END 2024-10-26 10:15 | disposition home or self-care (01) ==
LOC: M OPP 08:15
PROVIDERS: ATTEND Surgery
DX: Z12.11 Encounter for screening for malignant neoplasm of colon (principal); K31.89 Other diseases of stomach and duodenum; D50.9 Iron deficiency anemia, unspecified; Z95.5 Presence of coronary angioplasty implant and graft; Z88.8 Allergy status to other drugs, medicaments and biological substances; Z79.82 Long term (current) use of aspirin; Z79.899 Other long term (current) drug therapy
CPT/HCPCS: 43239; 88305; G0121; J3010